=== PATIENT | male | born 1960 | race Caucasian/White ===

== ENCOUNTER 2016-07-24 07:21 | Emergency (ER) | payer OTHER ==
--- NOTE | 2016-07-24 07:37 | EDPHY ---
H & P HPI/ROS: CHIEF COMPLAINT: Chest pain HISTORY OF PRESENT ILLNESS: The patient is a 55 year old male presenting to the ED with intermittent chest pain for the past few days, worse last night. He reports feeling left sided chest pain before bed that kept him awake. He woke up this morning with continued pain. His pain is moderate in nature and nonradiating. He denies any pain with exertion. He had a similar episode of chest pain in 2013 that was related to stress and anxiety. The patient is leaving the country for 1 month and feels anxious about getting things together. He believes his chest pain today is similar to the previous episode in 2013. The patient is a healthy male who exercises regularly. Cardiac risk factors negative. Nonsmoker; no family history; no hypertension, diabetes or hypercholesterolemia. REVIEW OF SYSTEMS: Aside from elements discussed in the HPI, a comprehensive 10-point review of systems was reviewed and is negative. Past Medical/Surgical History: Coello Palsy 2009, Knee arthroscopy Social History: Single. Lives in [place]. Smoking Status: Never smoked Physical Exam: General Appearance: Alert, no distress Eyes: Pupils equal and round, no conjunctival pallor or injection ENT, Mouth: Mucous membranes moist Neck: Normal inspection Respiratory: Lungs are clear to auscultation Cardiovascular: Regular rate and rhythm Gastrointestinal: Abdomen is soft and non-tender Neurological: A&O, nonfocal, normal gait Skin: Warm and dry, no rash Extremities: Nontender, no pedal edema Psychiatric: Mood and affect normal Constitutional: Initial Vital Signs Temperature (C) 36.5 C 07/24/16 07:24 Heart Rate 53 L 07/24/16 07:24 Respiratory Rate 18 07/24/16 07:24 Blood Pressure 175/98 H 07/24/16 07:24 O2 Sat (%) 96 07/24/16 07:24 O2 Delivery Mode Room Air Allergies/Adverse Reactions: No Known Allergies Allergy (Verified 07/24/16 07:23) Home Medications: Medication Instructions Recorded NO HOME MEDS 02/18/10 Medical Decision Making - Diagnostics EKG Interpretation: The 12 lead EKG was interpreted by myself. See hard copy and/or "tracemaster" electronic copy for interpretation: Sinus bradycardia, rate 48. No ST or T segment changes. Imaging: Study: X-ray of the chest was obtained. Results: No acute disease. Images were interpreted by the radiologist, Dr. Matt. I viewed the images myself on the PACS system. ED Course/Re-evaluation: This patient presents with atypical chest pain. Stat EKG reveals no evidence of ischemia or dysrhythmia. The patient remained asymptomatic throughout his emergency department stay. neurosurgical nurse revealed normal sinus rhythm. After careful consideration and evaluation, I find no evidence of acute coronary syndrome. The patient has no risk factors for coronary disease, normal EKG and normal studies. In addition, I feel that I can safely exclude pulmonary embolism, with normal vital signs, normal oxygen saturation and normal studies. In addition there is no evidence of pneumothorax, pneumonia, aortic dissection. Differential Diagnosis: Differential diagnosis includes though it is not limited to pneumonia, pneumothorax, pulmonary embolism, aortic dissection, pericarditis, acute coronary syndrome. - Data Points Laboratory Results: Laboratory Results 07/24/16 07:40 07/24/16 07:40 07/24/16 07:40 WBC 4.65 10^3/uL (3.80-9.50) RBC 5.19 10^6/uL (4.40-6.38) Hgb 16.3 g/dL (13.7-17.5) Hct 48.1 % (40.0-51.0) MCV 92.7 fL (81.5-99.8) MCH 31.4 pg (27.9-34.1) MCHC 33.9 g/dL (32.4-36.7) RDW 13.9 % (11.5-15.2) Plt Count 173 10^3/uL (150-400) MPV 10.8 fL (8.7-11.7) Neut % (Auto) 54.8 % (39.3-74.2) Lymph % (Auto) 31.6 % (15.0-45.0) [place] % (Auto) 11.0 % (4.5-13.0) Eos % (Auto) 1.1 % (0.6-7.6) Baso % (Auto) 1.3 % (0.3-1.7) Nucleat RBC Rel Count 0.0 % (0.0-0.2) Absolute Neuts (auto) 2.55 10^3/uL (1.70-6.50) Absolute Lymphs (auto) 1.47 10^3/uL (1.00-3.00) Absolute Monos (auto) 0.51 10^3/uL (0.30-0.80) Absolute Eos (auto) 0.05 10^3/uL (0.03-0.40) Absolute Basos (auto) 0.06 10^3/uL (0.02-0.10) Absolute Nucleated RBC 0.00 10^3/uL (0-0.01) Immature Gran % 0.2 % (0.0-1.1) Immature Gran # 0.01 10^3/uL (0.00-0.10) D-Dimer < 0.27 ug/mLFEU (0.00-0.50) Sodium 143 mEq/L (134-144) Potassium 4.4 mEq/L (3.5-5.2) Chloride 105 mEq/L (97-110) Carbon Dioxide 27 mEq/l (22-31) Anion Gap 11 mEq/L (8-16) BUN 14 mg/dL (7-23) Creatinine 1.1 mg/dL (0.7-1.3) Estimated GFR > 60 Glucose 95 mg/dL (70-100) Calcium 10.1 mg/dL (8.5-10.4) Total Bilirubin 0.9 mg/dL (0.1-1.4) Conjugated Bilirubin 0.2 mg/dL (0.0-0.5) Unconjugated Bilirubin 0.7 mg/dL (0.0-1.1) AST 33 IU/L (17-59) ALT 37 IU/L (21-72) Alkaline Phosphatase 60 IU/L (38-126) Troponin I < 0.012 ng/mL (0-0.034) Total Protein 7.4 g/dL (6.3-8.2) Albumin 4.3 g/dL (3.5-5.0) Lipase 189.0 IU/L (23-300) Departure - Departure Disposition: Home, Routine, Self-Care Clinical Impression: Atypical chest pain Condition: Good Instructions: Chest Pain (ED) Additional Instructions: Followup with Dr. Gardner as needed. Return to the Emergency Department with worsening symptoms or other concerns. Referrals: Lincoln Gardner MD [Primary Care Provider] - As per Instructions Report Scribed for: Rea Yanes Report Scribed by: Nini Alonso Date of Report: 07/24/16 Time of Report: 07:36 Physician Review and Approval Statement: 07/24/16 07:36 Portions of this note were transcribed by a medical clinic manager. I personally performed the history, physical exam, and medical decision-making; and confirmed the accuracy of the information in the transcribed note.
[2016-07-24 08:05] LABS: % IMMATURE GRANULYOCYTES 0.2 % (0.0-1.1); ABSOLUTE IMMATURE GRANULOCYTES 0.01 10^3/uL (0.00-0.10); ADD DIFF? NO; ADD MORPH? NO; ADD SCAN? NO; ATYPICAL LYMPHOCYTE FLAG 0 (0-99); FRAGMENT RBC FLAG 0 (0-99); HEMATOCRIT 48.1 % (40.0-51.0); HEMOGLOBIN 16.3 g/dL (13.7-17.5); LEFT SHIFT FLG 0 (0-99); LIPEMIA HEMOLYSIS FLAG 90 (0-99); MEAN CELL HEMOGLOBIN 31.4 pg (27.9-34.1); MEAN CELL HEMOGLOBIN CONCENTR. 33.9 g/dL (32.4-36.7); MEAN CELL VOLUME 92.7 fL (81.5-99.8); MEAN PLATELET VOLUME 10.8 fL (8.7-11.7); PLATELET CLUMPS FLAG 10 (0-99); PLATELET COUNT 173 10^3/uL (150-400); RED BLOOD CELL COUNT 5.19 10^6/uL (4.40-6.38); RED CELL DISTRIBUTION WIDTH 13.9 % (11.5-15.2)
[2016-07-24 08:23] LABS: ALANINE AMINOTRANSFERASE 37 IU/L (21-72); ALBUMIN 4.3 g/dL (3.5-5.0); ALKALINE PHOSPHATASE 60 IU/L (38-126); ANION GAP 11 mEq/L (8-16); ASPARTATE AMINOTRANSFERASE 33 IU/L (17-59); BILIRUBIN,TOTAL 0.9 mg/dL (0.1-1.4); BILIRUBIN-CONJUGATED 0.2 mg/dL (0.0-0.5); BILIRUBIN-UNCONJUGATED 0.7 mg/dL (0.0-1.1); CALCIUM 10.1 mg/dL (8.5-10.4); CARBON DIOXIDE 27 mEq/l (22-31); CHLORIDE 105 mEq/L (97-110); CREATININE 1.1 mg/dL (0.7-1.3); GLOMERULAR FILTRATION RATE > 60; GLUCOSE 95 mg/dL (70-100); POTASSIUM 4.4 mEq/L (3.5-5.2); SODIUM 143 mEq/L (134-144); TOTAL PROTEIN 7.4 g/dL (6.3-8.2)
--- NOTE | 2016-07-24 08:26 | DX ---
PA and Lateral Chest July 24, 2016 Clinical Indications: Chest pain. Comparison: June 27, 2013. Findings: The lungs are clear, and no masses are found. The heart and pulmonary vessels are normal. There are no pleural effusions and no pneumothorax. The bones are unremarkable for this age. Impression: Normal.
[2016-07-24 08:35] LABS: TROPONIN I < 0.012 ng/mL (0-0.034)
[2016-07-24 08:38] VITALS: BP 142/91; PULSE 47; RESP 16; TEMP 97.3; O2SAT 98
--- NOTE | 2016-07-25 07:37 | CPEKG ---
Heart Rate: 48 RR Interval: 1250 P-R Interval: 180 QRSD Interval: 94 QT Interval: 480 QTC Interval: 429 P Cory: 58 QRS Cory: 58 T Wave Cory: 43 EKG Severity - OTHERWISE NORMAL ECG - EKG Impression: SINUS BRADYCARDIA Electronically Signed By: Rea Yanes 25-Jul-2016 23:08:02
== END 2016-07-24 08:38 | disposition home or self-care (01) ==
DX: R07.89 Other chest pain (principal)